=== PATIENT | male | born 2000 | race Caucasian/White ===

== ENCOUNTER 2018-10-26 16:47 | Emergency (ER) | payer OTHER ==
[~2018-10-26] VITALS: Ht 182.9 cm; Wt 63.5 kg
== END 2018-10-26 22:34 | disposition home or self-care (01) ==
LOC: ER 16:47
DX: S01.122A Laceration with foreign body of left eyelid and periocular area, initial encounter (principal); S00.83XA Contusion of other part of head, initial encounter; W50.0XXA Accidental hit or strike by another person, initial encounter; Y93.89 Activity, other specified; Y92.89 Other specified places as the place of occurrence of the external cause; Y99.8 Other external cause status

== ENCOUNTER 2018-11-04 13:01 | Emergency (ER) | payer OTHER ==
[~2018-11-04] VITALS: Ht 182.9 cm; Wt 63.5 kg
== END 2018-11-04 15:21 | disposition home or self-care (01) ==
LOC: ER 13:01
DX: Z48.02 Encounter for removal of sutures (principal)

== ENCOUNTER 2019-01-16 13:43 | Emergency (ER) | payer OTHER ==
[~2019-01-16] VITALS: Ht 182.9 cm; Wt 63.5 kg
== END 2019-01-16 21:18 | disposition home or self-care (01) ==
LOC: ER 13:43
DX: M54.2 Cervicalgia (principal); R22.0 Localized swelling, mass and lump, head

== ENCOUNTER → 2019-01-16 | Emergency (ER) | payer OTHER ==
[~2019-01-16] VITALS: Ht 182.9 cm; Wt 63.5 kg
== END | disposition left against medical advice (07) ==
LOC: ER 00:06
DX: Z53.20 Procedure and treatment not carried out because of patient's decision for unspecified reasons (principal)

== ENCOUNTER 2019-08-16 13:18 | Emergency (ER) | payer OTHER ==
[~2019-08-16] VITALS: Ht 182.9 cm; Wt 68.0 kg
[2019-08-16] MEDS ORDERED: CORTISPORIN EAR10 M1 OPHT (14:51)
== END 2019-08-16 16:21 | disposition home or self-care (01) ==
LOC: ER 13:18
DX: H60.8X1 Other otitis externa, right ear (principal)

== ENCOUNTER 2019-08-18 13:00 | Emergency (ER) | payer OTHER ==
[~2019-08-18] VITALS: Ht 182.9 cm; Wt 68.0 kg
[~2019-08-18 13:00] MED LIST: CORTISPORIN EAR10 M1 OPHT
[2019-08-18] MEDS ORDERED: AMPHETAMINE SAL10 M1 PO (13:37)
== END 2019-08-18 18:03 | disposition home or self-care (01) ==
LOC: ER 13:00
DX: L03.032 Cellulitis of left toe (principal)

== ENCOUNTER 2020-07-30 15:50 | Outpatient (CLI) | payer OTHER ==
[~2020-07-30 15:50] MED LIST changes: +AMPHETAMINE SAL10 M1 PO
== END 2020-07-30 16:01 | disposition home or self-care (01) ==
LOC: RAD 15:50
PROVIDERS: ATTEND Orthopaedic Surgery Hand Surgery
DX: M25.531 Pain in right wrist (principal)

== ENCOUNTER 2020-08-27 06:38 | Day surgery (SDC) | payer OTHER | END 2020-08-27 13:30 | disposition home or self-care (01) | LOC: CIR.AMB 06:38 | PROVIDERS: ATTEND Orthopaedic Surgery Hand Surgery | DX: S63.591A Other specified sprain of right wrist, initial encounter (principal); Z20.828 Contact with and (suspected) exposure to other viral communicable diseases ==

== ENCOUNTER 2021-02-06 18:06 | Emergency (ER) | payer OTHER ==
[~2021-02-06] VITALS: Ht 182.9 cm; Wt 68.0 kg
[2021-02-06] MEDS ORDERED: MECLIZINE HCL25 MG PO (20:54)
== END 2021-02-06 21:03 | disposition home or self-care (01) ==
LOC: ER 18:06
DX: R42 Dizziness and giddiness (principal); H92.01 Otalgia, right ear

== ENCOUNTER 2023-11-15 07:26 | Outpatient (CLI) | payer OTHER ==
[~2023-11-15 07:26] MED LIST changes: +MECLIZINE HCL25 MG PO
== END 2023-11-15 13:49 | disposition home or self-care (01) ==
LOC: LAB 07:26
PROVIDERS: ATTEND Student in an Organized Health Care Education/Training Program
DX: J11.1 Influenza due to unidentified influenza virus with other respiratory manifestations (principal); R50.9 Fever, unspecified; Z20.822 Contact with and (suspected) exposure to COVID-19

== ENCOUNTER 2024-05-02 11:23 | Emergency (ER) | payer OTHER ==
[~2024-05-02] VITALS: Ht 182.9 cm; Wt 113.4 kg
[~2024-05-02 11:23] MED LIST changes: +ADDERALL 10 MG10 MG PO; +AMOX1TAB5 PO; +CORTISPORIN-TC10 M1 OT; +IBU600 MG PO
[2024-05-02] MEDS ORDERED: ACETAMINOPHEN WITH CODEINE 1 UDTAB TABLET PO STA (12:00)
[2024-05-02 13:08] LABS: HEMATOCRIT 44.2 % (39.0-48.0); HEMOGLOBIN 15.1 g/dL (13-16.00); MEAN CELL VOLUME 80.3 fL (80.0-100.00); MEAN CORPUSCULAR HEMOGLOBIN 27.5 pg (27.00-32.0); MEAN CORPUSCULAR HGB CONC 34.2 g/dl (32.0-36.0); PLATELET COUNT 190 K/uL (150-450); RED CELL DISTRIBUTION WIDTH 14.3 % (11.5-14.5)
[2024-05-02 13:56] LABS: CREATININE SERUM 1.04 mg/dL (0.70-1.30); GFR 86.33; POTASSIUM 3.81 mEq/L (3.5-5.1)
== END 2024-05-02 14:47 | disposition home or self-care (01) ==
LOC: ER 11:23
PROVIDERS: General Practice
DX: R50.9 Fever, unspecified (principal); H66.90 Otitis media, unspecified, unspecified ear